=== PATIENT | female | born 1995 | race American Indian/Alaskan Native ===

== ENCOUNTER 2017-02-19 15:54 | Emergency (ER) | payer OTHER ==
[2017-02-19 16:08] VITALS: BP 143/92
[2017-02-19 16:42] LABS: Bacteria,Urine 1+ /HPF (Negative); Bilirubin,Urine NEG (Negative); Blood,Urine NEG (Negative); Ketones,Urine NEG (Negative); Leukocyte Esterase,Urine LG (Negative); Mucus,Urine 1+ /HPF; Nitrite,Urine NEG (Negative); Urobilinogen,Urine < 2.0 mg/dL (<2.0)
[2017-02-19 17:04] LABS: Alanine Aminotransferase 23 units/L (7-56); Albumin 4.4 g/dL (3.9-5); Albumin/Globulin Ratio 1.4 %; Alkaline Phosphatase 67 units/L (35-129); BUN/Creatinine Ratio 15; Blood Urea Nitrogen 9 mg/dL (7-17); Carbon Dioxide 23 mmol/L (22-30); Glucose 85 mg/dL (65-100); Lipase 19 units/L (13-60); Total Protein 7.6 g/dL (6.3-8.2)
[2017-02-19 17:05] LABS: Anion Gap 15 mmol/L; Chloride 100.6 mmol/L (98-107); Potassium 3.8 mmol/L (3.6-5.0); Sodium 135 mmol/L (137-145)
[2017-02-19 17:20] LABS: WBC,Urine > 182.0 /HPF (0.0-6.0)
[2017-02-19 17:29] LABS: Basophils % (Auto) 0.6 % (0.0-1.8); Eosinophils % (Auto) 0.2 % (0.0-4.3); Hematocrit 32.6 % (30.3-42.9); Hemoglobin 10.2 gm/dl (10.1-14.3); Mean Corpuscular HGB Conc 31 % (30-34); Mean Corpuscular Volume 79 fl (79-97); Platelet Count 419 K/mm3 (140-440); Red Blood Count 4.11 M/mm3 (3.65-5.03); Red Cell Distribution Width 16.7 % (13.2-15.2); White Blood Count 10.4 K/mm3 (4.5-11.0)
[2017-02-19 17:33] LABS: Mean Corpuscular Hemoglobin 25 pg (28-32)
== END 2017-02-19 17:43 | disposition left against medical advice (07) ==
LOC: ED 15:54
DX: R10.9 Unspecified abdominal pain (principal); Z53.21 Procedure and treatment not carried out due to patient leaving prior to being seen by health care provider
CPT/HCPCS: 36415; 80053; 81001; 83690; 84702; 85025